=== PATIENT | male | born 1965 | race Caucasian/White ===

== ENCOUNTER 2016-11-28 10:39 | Emergency (ER) | payer SELFPAY ==
[~2016-11-28] VITALS: Ht 182.9 cm; Wt 111.1 kg
--- NOTE | 2016-11-28 11:30 | Urgent Treatment Center Report ---
History of Present Issue Date/Time Seen by Provider 11/28/16 1101 Visit Reason Pt arrived:Walked Presenting Problem:TOOTHACHE SINCE FRIDAY NIGHT. EYE AREA AND LIP NOW FEELS SWOLLEN Location if Accident: Onset of symptoms date/time:/ or onset unknown for:MEDICAL HX UNKNOWN Have you (or family members/close friends) recently traveled outside the [place]? N If Yes, where/when: Have you had exposure to infectious disease within the past month? TB? Other? Specify: Patient state that on Friday he thought he was having an allergic reaction to something when he noticed that his face was swollen so he took some over the counter Benadryl and the swelling went down. State that on Friday he woke up and his face was swollen and his lip was numb and it was hard for him to talk and at first he thought he may have had a stroke then after he calmed down his noticed his tooth was hurting and his face was swollen again He thought he may have an abcessed tooth so he started taking Bactrim. States that he has been taking Bactrim since Friday with no improvement in symptoms. Still having dental pain, multiple cavities and broken teeth, right side facial swelling and pain with swelling extending up into his right eye area. States that he has been applying ice to the area but it hasn't helped much Also states that he has been running a fever and states that symptoms seem to continue to get worse. ALLERGIES Coded Allergies: No Known Allergies (11/28/16) Home Medications Reported Medications No Known Home Medications History Medical History General CAD? No Angina: No [place]: No Hypertension? No Hyperlipidemia? No CHF? No DVT? No PE? No COPD? No Asthma? No Anemia? No GERD? No GI Bleed? No Hernia? No Thyroid Problems? No Hypothyroidism? No CVA? No Seizures? No Diabetes? No Renal Insuffiency? No UTI? No Stones? No BPH? No GB Disease: No Nephritic Syndrome? No Asplenia? No Hepatitis? No Sickle Cell Disease? No Migraines? No Cataracts? No Glaucoma? No MRSA? No HIV? No TB? No Anxiety? No Depression? No Cancer? No Site: N Immunization HX DT/Tetanus Unknown Surgical Hx Previous Surgery?N Social History Smoking Hx Smoker: Current Every Day Smoker Tobacco: Yes Type Cigarettes Packs/day 1 1/2 - 2 Packs Alcohol Alcohol: No Review of Systems All Other Systems Reviewed and Negative Comment Right side facial swelling, dental pain, thinks he has an abcess, having fever Physical Exam Vital Signs Vital Signs Date Time Temp Pulse Resp B/P Pulse O2 O2 Flow FiO2 Ox Delivery Rate 11/28 1122 99.0 95 20 146/97 99 11/28 1058 99.0 95 20 146/97 99 General Appearance Appears ill sitting on exam table with right side of face swollen, edema noted under right eye Ear, Nose, Throat Swelling noted to right side of face, multiple dental caries noted with broken teeth and dental pain, edema in lips that extends up right side of face into the periorbital area, denies vision disturbances. Respiratory Status Yes: trachea midline, chest symmetrical, non tender chest. No: respiratory distress. 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 No Results/Orders Current Medication Orders Sig/Leslye Start time Last Medication Dose Route Stop Time Status Admin Miscellaneous 1 EACH CONSULT PHARMACY 11/28 1130 AC Information * 11/28 2324 Sodium Chloride 10 ML PRN PRN 11/28 1130 AC IV 11/29 1124 Orders Procedure Date/time Status CT SCAN REQUEST 11/28 1125 Active IV SALINE LOCK 11/28 1124 Active CBC WITH AUTO DIFF 11/28 1124 Active CHEM 12 PROFILE 11/28 1124 Active Progress PAC Progress Notes Comment Consulted with Dr Carreon, he observed/ examined patient and agreed that patient needed to be transfered to ER for CT and further work up Patient report given and patient transfered to ER Departure Departure Time of Disposition 1129 Disposition Still a Patient Clinical Impression Primary Impression: Facial swelling Condition STABLE Prescriptions Current Visit Scripts No Known Home Medications at 1130
[2016-11-28 11:42] LABS: HEMOGLOBIN 14.5 g/dL (14.1-18.0); LYMPH # 1.5 K/mm3 (0.7-4.5); LYMPH % 24.7 % (10-50)
--- NOTE | 2016-11-28 12:58 | RADIOLOGY REPORT PS360 ---
CT MAXILLOFACIAL W/WO CONT CLINICAL INDICATION: RT FACE SWELLING AND PAIN/DENTAL ABSCESS ORDERING PHYSICIAN: Song Carreon MD PATIENT AGE: 51 years COMPARISON: None TECHNIQUE: Axial images are obtained of the face without and with contrast. There are no previous studies available for comparison. FINDINGS: Extensive soft tissue swelling is present extending from the right orbital region along the central and right paracentral aspect of the maxilla inferior to the nasal spine. There is mild subcutaneous soft tissue swelling in the right mandibular region as well. There is a 1.6 x 0.8 x 1.2 cm area of decreased attenuation seen on the unenhanced images anterior to the medial aspect of the right maxilla beginning along the inferior aspect of the inferior nasal spine anterior to the alveolar ridge consistent with an abscess. This is immediately superficial to a periapical abscess of the right maxillary lateral incisor which measures 9 mm. There are multiple dental caries. Scattered small lymph nodes are present in the neck bilaterally largest in the left deep cervical chain at 2.4 x 1.3 cm. Small bilateral submandibular lymph nodes are present. No sinus air-fluid level. Scattered areas of mucosal thickening noted involving paranasal sinuses. IMPRESSION: 1. Right-sided facial abscess as described above in the maxillary region associated with a periapical abscess of the lateral incisor. 2. Facial cellulitis. 3. Mild cervical adenopathy. 4. Multiple dental caries
--- NOTE | 2016-11-28 13:37 | Emergency Room Report ---
History of Present Illness Time Seen by 1124 Presenting Problem in Triage Pt arrived:Walked Presenting Problem:TOOTHACHE SINCE FRIDAY NIGHT. EYE AREA AND LIP NOW FEELS SWOLLEN Onset of symptoms date/time:/ or onset unknown for:MEDICAL HX UNKNOWN Treatment Prior to Arrival: [employer] Provided by: Sepsis Risk Assessment: Temp: 99 B/P: 141/89 MAP: 113 Pulse: 95 Resp: 20 Recent fever? N Clinical Suspician of Infection? Y Mental Status: 1 - Regular (Normal Baseline) Sepsis Risk:Possible Sepsis Risk Have you (or family members/close friends) recently traveled outside the [place]? N If Yes, where/when: Have you had exposure to infectious disease within the past month? TB? Other? Specify: Source patient, RN notes reviewed, family, RN/MD Exam Limitations no limitations Comment This is a 51-year-old male presented to the emergency room with RIGHT face pain and swelling since Friday. He started taking some left over Bactrim DS , same day, 2x/day, with this being the 4th day on oral antibiotics. The patient is a history of dental caries, which he has been aware of. He has been unable to see his dentist recently. He has been experiencing some subjective fever and chills since Friday, as well. Despite oral antibiotics, his face swelling and pain continued to get worse, day by day. ALLERGIES Coded Allergies: No Known Allergies (11/28/16) Home Medications Reported Medications No Known Home Medications History Medical History General CAD? No Angina: No [place]: No Hypertension? No Hyperlipidemia? No CHF? No DVT? No PE? No COPD? No Asthma? No Anemia? No GERD? No GI Bleed? No Hernia? No Thyroid Problems? No Hypothyroidism? No CVA? No Seizures? No Diabetes? No Renal Insuffiency? No End Stage Renal Disease? No UTI? No Stones? No BPH? No GB Disease: No Nephritic Syndrome? No Asplenia? No Hepatitis? No Sickle Cell Disease? No Migraines? No Cataracts? No Glaucoma? No MRSA? No HIV? No TB? No Anxiety? No Depression? No Cancer? No Site: N Immunization Hx DT/Tetanus Unknown Surgical Hx Previous Surgery?N Social History Smoking Hx Smoker: Current Every Day Smoker Tobacco: Yes Type Cigarettes Packs/day 1 1/2 - 2 Packs Alcohol Alcohol: No Review of Systems All Other Systems Reviewed and Negative ENT mouth pain (RIGHT maxillary caries). Skin lesions (RIGHt face swelling) Physical Exam Vital Signs Vital Signs Date Time Temp Pulse Resp B/P Pulse O2 O2 Flow FiO2 Ox Delivery Rate 11/28 1203 95 20 141/89 99 11/28 1122 99.0 95 20 146/97 99 11/28 1058 99.0 95 20 146/97 99 General Appearance normal appearance, WD/WN, mild distress Ear, Nose, Throat hearing grossly normal, normal pharynx, dental caries (rigth maxillary teeth), dental tenderness, right maxilla Respiratory Status Yes: trachea midline, chest symmetrical, non tender chest. No: respiratory distress. Lung Sounds bilateral: normal breath sounds, lungs clear. 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 Medical Decision Making LABS/Meds/Orders Pt receiving controlled substance in ED? No Comment 13:30-call initiated with your [facility]-MD regarding patient's need to be transferred to [facility] regarding his RIGHT face apical abscess + RIGHT face abscess. 13:37-case d/w Dr De La Rosa, with maxillofacial surgery, advised of patient's presentation, findings, as well as management so far. Dr. De La Rosa agreeable with all the above + transfer directly to the [facility] emergency room upon completion of the IV vancomycin. Patient transferred to [facility] by private vehicle, with medical records including CT scan on CD-ROM as well as blood work and radiologist's CT scan written report. Results/Orders Laboratory Tests 11/28/16 1125: Sodium 135 L, Potassium 4.2, Chloride 101, Carbon Dioxide 26, BUN 9, Creatinine 1.0, Estimated Creat Clear 139, Estimated GFR (MDRD) 79, Glucose 96, Calcium 9.0 , Total Bilirubin 0.6, AST 38 H, ALT 63, Alkaline Phosphatase 46, Total Protein 9.0 H, Albumin 4.0, Globulin 5.0 H, Albumin/Globulin Ratio 0.8 L, WBC 6.1, RBC 4.46 L, Hgb 14.5, Hct 42.4, MCV 95.1, RDW 13.6, Plt Count 160, MPV 7.9, Gran % 66.5, Gran # 4.0, Lymphocytes % 24.7, Monocytes % 5.9, Eosinophils % 2.4, Basophils % 0.5, Lymphocytes # 1.5, Monocytes # 0.4, Eosinophils # 0.1, Basophils # 0.0, PUBS MCHC 34.2, MCH 32.5 H Current Medication Orders Sig/Leslye Start time Last Medication Dose Route Stop Time Status Admin Vancomycin HCl 2,000 MG ONCE ONE 11/28 1300 AC 11/28 Sodium Chloride 250 ML IV 11/28 1459 1310 Iopamidol 100 ML ONCE ONE 11/28 1230 DC 11/28 IV 11/28 1231 1226 Sodium Chloride 10 ML ONCE ONE 11/28 1230 DC 11/28 IV 11/28 1231 1226 Miscellaneous 1 EACH CONSULT PHARMACY 11/28 1130 DC Information * 11/28 2324 Sodium Chloride 10 ML PRN PRN 11/28 1130 AC IV 11/29 1124 Orders Procedure Date/time Status CT SCAN REQUEST 11/28 1125 Active IV SALINE LOCK 11/28 1124 Active CBC WITH AUTO DIFF 11/28 1124 Complete CHEM 12 PROFILE 11/28 1124 Complete XRAY/CT/US XRAY/CT/US CT maxillofacial CT scan with IV contrast shows a 1.6 x 0.8 x 1.2 cm area of facial abscess in the soft tissue of the RIGHT maxilla, adjacent to the RIGHT maxillary lateral incisor, also presenting with an apical abscess, 9 mm. Consult MD Physician Consult Consult/PCP 13:37-Dr De La Rosa with maxillo-facial surgery Departure Departure Time of Disposition 1335 Disposition DC/XFER from ER to [facility] Clinical Impression Primary Impression: Facial abscess Secondary Impressions: Cellulitis of face, Periapical abscess Condition STABLE Patient Instructions DI for Skin Abscess, DI for Tooth Abscess Additional Instructions You are being transferred to Emergency Room, care of Dr De La Rosa, with maxillo-facial surgery, for further care. Discharge Counseling Counseled pt/family regarding diagnosis, test results, medications/RX, home care, follow up needs Comment You are being transferred to Emergency Room, care of Dr De La Rosa, with maxillo-facial surgery, for further care. Prescriptions Current Visit Scripts No Known Home Medications ED Critical Care Critical Care No at 5904
[2016-11-28 14:48] VITALS: BP 105/84
== END 2016-11-28 14:55 | disposition short-term general hospital (02) ==
LOC: UTC 10:39 → ER 10:44 → UTC 10:44 → ER 14:55
PROVIDERS: Emergency Medicine
DX: K04.7 Periapical abscess without sinus (principal); K02.9 Dental caries, unspecified
CPT/HCPCS: J2405; J3370; Q9967